=== PATIENT | male | born 1955 | race Caucasian/White ===

== ENCOUNTER 2024-03-05 11:47 | Emergency (ER) | payer MEDICARE, SELFPAY ==
[2024-03-05 11:52] VITALS: BP 182/99; PULSE 77; RESP 18; TEMP 36.3; O2SAT 99; BMI 21.9
--- NOTE | 2024-03-05 11:57 | DI.US.S_ITS ---
PROCEDURE: US PERIPH VENOUS LOW EXTREM LT INDICATIONS: pain/swelling r/o clot TECHNIQUE: Real-time imaging, as well as color and pulse Doppler interrogation, were performed of the lower extremity deep veins from the inguinal ligament to the popliteal fossa, with documentation of the visualized calf veins. COMPARISON: None. FINDINGS: The common femoral, femoral, popliteal, and the visualized calf veins are normally compressible, and free of intraluminal thrombus. Color and pulse Doppler demonstrate normal phasic intraluminal flow. There is normal augmentation response to distal compression maneuver. IMPRESSION: No findings of lower extremity deep venous thrombosis. Dictated by: Burke Osei M.D. on 03/05/2024 at 13:04 Approved by: Burke Osei M.D. on 03/05/2024 at 13:05
--- NOTE | 2024-03-05 13:46 | PC.NURSE ---
Pt endorses still doing manual labor at 68 years old, working in construction for 30 years, noting how hard it can be on the body.
--- NOTE | 2024-03-05 15:05 | ED_ITS ---
HPI - Extremity Problem <Dario Collazo PA-C - Last Filed: 03/05/24 15:17> General Chief complaint: Extremity Problem,Nontraumatic Stated complaint: L Leg Poss Clot Time Seen by Provider: 03/05/24 14:08 History of Present Illness HPI Narrative: 68-year-old male presents to the ED with 8-9 days of left-sided calf pain and swelling. Patient denies any specific trauma. 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 Patient reports spontaneous onset of left- sided calf pain, swelling. Patient states that the swelling was worse and has now improved. No numbness, tingling, weakness. No chest pain, shortness of breath. Related Data Allergies Allergy/AdvReac Type Severity Reaction Status Date / Time No Known Drug Allergies Allergy Verified 03/05/24 11:52 Review of Systems <Dario Collazo PA-C - Last Filed: 03/05/24 15:17> Constitutional Constitutional: Denies chills, Denies fatigue, Denies fever(s), Denies frequent falls, Denies lethargy and Denies weakness Eyes Eyes: Denies change in vision, Denies eye discharge, Denies irritation and Denies loss of vision ENT Ears, Nose, Mouth, and Throat: Denies change in voice, Denies dizziness, Denies neck pain, Denies sore throat and Denies throat swelling Cardiovascular Cardiovascular: Denies chest pain, Denies irregular heart rhythm, Denies lightheadedness, Denies palpitations, Denies dyspnea, Denies dyspnea on exertion and Denies orthopnea Respiratory Respiratory: Denies cough, Denies dyspnea, Denies dyspnea on exertion and Denies wheezing Gastrointestinal Gastrointestinal: Denies abdominal pain, Denies change in bowel habits, Denies diarrhea, Denies nausea and Denies vomiting Musculoskeletal Musculoskeletal: Denies neck pain and Denies numbness Comments: Right-sided calf pain and swelling Integumentary/Breasts Skin/Breast: Denies pruritus, Denies erythema, Denies rash and Denies wounds Neurologic Neurologic: Denies behavioral changes, Denies confusion, Denies dizziness, Denies frequent falls, Denies loss of vision, Denies numbness and Denies weakness Psychiatric Psychiatric: Denies anxiety, Denies behavioral changes, Denies confusion, Denies depression, Denies homicidal ideation and Denies suicidal ideation Endocrine Endocrine: Denies fatigue, Denies flushing and Denies palpitations Hematologic/Lymphatic Hematologic/Lymphatic: Denies easy bruising Allergic/Immunologic Allergic/Immunologic: Denies urticaria, Denies throat swelling and Denies wheezing Patient History <Dario Collazo PA-C - Last Filed: 03/05/24 15:17> Social History Smoking Status: Current every day smoker Smoking Status: Current every day smoker tobacco type: cigarettes alcohol intake frequency: 0-2 drinks per day Alcohol type: beer Substance Use Type: marijuana Exam <Dario Collazo PA-C - Last Filed: 03/05/24 15:17> Narrative Exam Narrative: Const General:?cooperative, healthy appearing and comfortable HENNH Head:?normal to inspection Ears:?hearing grossly normal bilaterally Nose:?external nose normal Face and sinus:?normal facial exam and sinuses nontender Mouth:?oral mucosae normal Throat:?posterior oropharynx normal Eyes General:?appearance normal, both eyes and all related structures Neck Neck:?normal visual inspection and no lymphadenopathy noted Resp Effort & Inspection:?normal respiratory effort Auscultation:?clear to auscultation bilaterally Cardio Rate:?regular rate Rhythm:?regular rhythm Musculoskeletal Mild tenderness to palpation of the left calf muscle. No swelling, erythema, deformities, bruising. Compartments are soft. Strength and sensation is intact. There is full range of motion. Patient is neurovascularly intact. Gait is normal. Neuro General:?patient alert, patient awake and patient oriented x3 Initial Vital Signs Initial Vital Signs: Vital Signs Temperature 97.4 F L 03/05/24 11:52 Pulse Rate 77 03/05/24 11:52 Respiratory Rate 18 03/05/24 11:52 Blood Pressure 182/99 H 03/05/24 11:52 Pulse Oximetry 99 03/05/24 11:52 Oxygen Delivery Method Room Air 03/05/24 11:52 <Bea Williamson DO - Last Filed: 03/06/24 07:58> Initial Vital Signs Initial Vital Signs: Vital Signs Temperature 97.4 F L 03/05/24 11:52 Pulse Rate 77 03/05/24 11:52 Respiratory Rate 18 03/05/24 11:52 Blood Pressure 182/99 H 03/05/24 11:52 Pulse Oximetry 99 03/05/24 11:52 Oxygen Delivery Method Room Air 03/05/24 11:52 Course <Dario Collazo PA-C - Last Filed: 03/05/24 15:17> Orders Ordered: ED Orders 03/05/24 11:57 US periph venous low extrem lt Stat Vital Signs Vital signs: Vital Signs - 8 hr 03/05/24 11:52 Temperature 97.4 F L Pulse Rate 77 Respiratory Rate 18 Blood Pressure 182/99 H Pulse Oximetry 99 Oxygen Delivery Method Room Air <Bea Williamson DO - Last Filed: 03/06/24 07:58> Orders Ordered: ED Orders 03/05/24 11:57 US periph venous low extrem lt Stat Vital Signs Vital signs: Vital Signs - 8 hr 03/05/24 11:52 Temperature 97.4 F L Pulse Rate 77 Respiratory Rate 18 Blood Pressure 182/99 H Pulse Oximetry 99 Oxygen Delivery Method Room Air MDM - Extremity (Nontraumatic) <Dario Collazo PA-C - Last Filed: 03/05/24 15:17> MDM Narrative Medical decision making narrative: 68-year-old male presents to the ED with 8-9 days of left-sided calf pain and swelling. Concern for DVT versus musculoskeletal sprain/strain versus other. There is no bony tenderness to palpation, unlikely fracture. Ultrasound was obtained which shows no findings of lower extremity DVT. Patient's symptoms are most likely consistent with a musculoskeletal sprain/strain of the calf muscle. Recommend ibuprofen, heat, ice. ED return precautions discussed with patient. Patient verbalized understanding. Medical records reviewed: Yes Discharge Plan Departure Patient Disposition: Home Clinical Impression: Calf pain Qualifiers: Laterality: left Qualified Code(s): M79.662 - Pain in left lower leg Instructions: DI for Calf Muscle Strain Activity Restrictions/Additional Instructions: You were evaluated in the ED today for left-sided calf pain. Your ultrasound was normal and did not show any blood clots. It appears that your calf pain is due to a musculoskeletal sprain/strain of the calf muscle from working. You may take 800 mg of Tylenol with food every 8 hours for pain. You may also apply ice or apply heat for comfort. Return to the ED if you have worsening symptoms, numbness, tingling, weakness, chest pain, shortness of breath. Stand Alone Forms: Patient Portal/API ED Sign-out <Bea Williamson DO - Last Filed: 03/06/24 07:58> Cosign ED Attending Cosignature Attestation: I was immediately available in the department for consultation.
[2024-03-05 15:25] VITALS: BP 144/92; PULSE 76; RESP 16; O2SAT 97
== END 2024-03-05 15:26 | disposition home or self-care (01) ==
PROVIDERS: Emergency Provider Student in an Organized Health Care Education/Training Program
DX: M79.662 Pain in left lower leg (principal); R22.42 Localized swelling, mass and lump, left lower limb
CPT/HCPCS: 93971; 99281; 99282